=== PATIENT | male | born 1980 | race African-American/Black ===

== ENCOUNTER 2020-12-28 03:04 | Emergency (ER) | payer OTHER ==
[2020-12-28 03:30] LABS: Absolute Lymphocytes (CBC) 2.6 K/uL (0.7-4.9); Basophils % 0.3 % (0-1.3); Hematocrit 46.4 % (39.6-49.0); Lymphocytes % 21.3 % (15.3-44.8); MPV 7.7 fL (7.6-11.3); RBC Red Blood Cell Count 5.53 M/uL (4.33-5.43)
[2020-12-28] MEDS ORDERED: NA CHLORIDE 0.9% 1,000 ML ONE (03:31)
[2020-12-28] MEDS ORDERED: ONDANSETRON 4 MG/2 ML VIAL ONE (03:31)
[2020-12-28 03:45] LABS: Albumin 4.2 g/dL (3.4-5.0); Bilirubin Direct 0.2 mg/dL (0-0.2); Bilirubin Total 0.7 mg/dL (0.2-1.0); Potassium 3.4 mmol/L (3.5-5.1); Protein, Total 7.9 g/dL (6.4-8.2)
[2020-12-28] MEDS ORDERED: MORPHINE 4 MG/ML SYR ONE (04:06)
[2020-12-28] MEDS ORDERED: FENTANYL CITR 100 MCG/2 ML ONE (04:33)
[2020-12-28] MEDS ORDERED: KETOROLAC 30 MG/ML INJ ONE (05:07)
--- NOTE | 2020-12-28 05:16 | EDPHYS ---
Physician Documentation [facility] Name: Hiram Anderson Age: 40 yrs Sex: Male : 1980 Arrival Date: 12/28/2020 Time: 03:05 Bed 4 Private MD: ED Physician Jeffery Gregory HPI: 12/28 03:52 This 40 yrs old Black Male presents to ER via EMS with complaints of abdominal pain. tw4 03:52 The patient presents with abdominal pain. Onset: The symptoms/episode began/occurred tw4 this morning, today. The symptoms do not radiate. Associated signs and symptoms: Pertinent positives: nausea, vomiting, and diarrhea, nausea and vomiting, diarrhea. The symptoms are described as crampy. Modifying factors: The symptoms are alleviated by nothing, the symptoms are aggravated by nothing. Severity of pain: At its worst the pain was moderate in the emergency department the pain is unchanged. The patient has not experienced similar symptoms in the past. Historical: - Allergies: 03:16 No Known Allergies; bs2 - Home Meds: 03:16 Unable to obtain [Active]; bs2 - PMHx: 03:16 Acid Reflux; bs2 - Immunization history:: Client reports receiving the 2nd dose of the Covid vaccine, Pizer. - Social history:: Smoking status: unknown. ROS: 03:52 Constitutional: Negative for fever, chills, and weight loss, Eyes: Negative for injury, tw4 pain, redness, and discharge, Cardiovascular: Negative for chest pain, palpitations, and edema, Respiratory: Negative for shortness of breath, cough, wheezing, and pleuritic chest pain, Back: Negative for injury and pain, MS/Extremity: Negative for injury and deformity, Skin: Negative for injury, rash, and discoloration, Neuro: Negative for headache, weakness, numbness, tingling, and seizure. 03:52 Abdomen/GI: Positive for abdominal pain, nausea and vomiting, nausea, vomiting, and diarrhea, nausea, vomiting, diarrhea, abdominal cramps, Negative for anorexia, dysphagia, hematemesis, black/tarry stool, rectal pain, rectal bleeding, bowel incontinence, flatulence. Exam: 03:52 Constitutional: This is a well developed, well nourished patient who is awake, alert, tw4 and in no acute distress. Head/Face: Normocephalic, atraumatic. Chest/axilla: Normal chest wall appearance and motion. Nontender with no deformity. No lesions are appreciated. Cardiovascular: Regular rate and rhythm with a normal S1 and S2. No gallops, murmurs, or rubs. Normal PMI, no JVD. No pulse deficits. Respiratory: Lungs have equal breath sounds bilaterally, clear to auscultation and percussion. No rales, rhonchi or wheezes noted. No increased work of breathing, no retractions or nasal flaring. Back: No spinal tenderness. No costovertebral tenderness. Full range of motion. Skin: Warm, dry with normal turgor. Normal color with no rashes, no lesions, and no evidence of cellulitis. MS/ Extremity: Pulses equal, no cyanosis. Neurovascular intact. Full, normal range of motion. Neuro: Awake and alert, GCS 15, oriented to person, place, time, and situation. Cranial nerves II-XII grossly intact. Motor strength 5/5 in all extremities. Sensory grossly intact. Cerebellar exam normal. Normal gait. 03:52 Abdomen/GI: Inspection: abdomen appears normal, Bowel sounds: normal, Palpation: moderate abdominal tenderness, in the umbilical area, suprapubic area, right upper quadrant, left upper quadrant, right lower quadrant and left lower quadrant. Vital Signs: 03:13 BP 156 / 94 LA Sitting (auto/lg); Pulse 57; Resp 19; Temp 97.6(TE); Pulse Ox 100% on bs2 R/A; Weight 90.72 kg; Height 6 ft. 1 in. (185.42 cm); Pain 10/10; 04:00 BP 148 / 87; Pulse 56; Resp 18; Pulse Ox 100% on R/A; jb4 05:00 BP 177 / 83; Pulse 71; Resp 16; Pulse Ox 100% on R/A; jb4 03:13 Body Mass Index 26.39 (90.72 kg, 185.42 cm) bs2 MDM: 04:52 Differential diagnosis: acute coronary syndrome, bowel obstruction, cholecystitis, tw4 Cholelithiasis, diverticulitis, Peritonitis, Prostatitis, Testicular Torsion. Data reviewed: vital signs, nurses notes. Data interpreted: Pulse oximetry: Interpretation: normal. Counseling: I had a detailed discussion with the patient and/or guardian regarding: the historical points, exam findings, and any diagnostic results supporting the discharge/admit diagnosis, lab results. Special discussion: Based on the patient's Hx, exam, and Dx evaluation, there is no indication for emergent surgery or inpatient Tx. It is understood by the patient/guardian that if the Sx's persist or worsen they need to return immediately for re-evaluation. I discussed with the patient/guardian in detail that at this point there is no indication for admission to the hospital. It is understood, however, that if the symptoms persist or worsen the patient needs to return immediately for re-evaluation. 05:15 Patient medically screened. tw4 05:16 Medication response: morphine markedly relieved the patient's pain. Symptoms have tw4 improved, Response to treatment: the patient's symptoms have markedly improved after treatment, and as a result, I will discharge patient. ED course: Patient came to the ER via ambulance and complaining of abdominal pain which is generalized with vomiting. Patient has had pain all day. Patient states the pain was diffuse. CT scan did not show any acute evidence of any abdominal process. Patient's laboratory evaluation was negative as well. Patient received multiple doses of pain medication and. 12/28 03:06 Order name: Basic Metabolic Panel; Complete Time: 03:51 12/28 03:51 Interpretation: Normal except: CL 108; GLUC 208; K 3.4. 12/28 03:06 Order name: CBC with Diff; Complete Time: 03:51 12/28 03:51 Interpretation: Normal except: WBC 12.10; RBC 5.53; NEUT A 8.6. 12/28 03:06 Order name: Hepatic Function; Complete Time: 03:51 12/28 03:51 Interpretation: Normal except: GLOB 3.7. 12/28 03:06 Order name: Lipase; Complete Time: 03:51 12/28 03:51 Interpretation: Within normal limits: LIP 138. 12/28 03:23 Order name: CT Abd/Pelvis - IV Contrast Only 12/28 05:42 Order name: Urine Dipstick-Ancillary EDMS 12/28 03:06 Order name: IV Saline Lock; Complete Time: 03:07 12/28 03:06 Order name: Labs collected and sent; Complete Time: 03:07 12/28 03:24 Order name: Urine Dipstick-Ancillary (obtain specimen) tw4 Administered Medications: 03:12 Drug: NS 0.9% 1000 ml Route: IV; Rate: 1 bolus; Site: right antecubital; ea 04:00 Follow up: Response: No adverse reaction; IV Status: Completed infusion; IV Intake: jb4 1000ml 06:17 Follow up: IV Status: Completed infusion bs2 03:12 Drug: Zofran (Ondansetron) 4 mg Route: IVP; Site: right antecubital; ea 05:52 Follow up: Response: No adverse reaction jb4 03:49 Drug: morphine 4 mg Route: IVP; Site: right antecubital; jb4 04:05 Follow up: Response: No adverse reaction; Pain is unchanged, physician notified jb4 04:17 Drug: fentaNYL (PF) 100 mcg Route: IVP; Site: right antecubital; jb4 04:30 Follow up: Response: No adverse reaction; Marked relief of symptoms; Pain is decreased jb4 04:50 Drug: Ketorolac 30 mg Route: IVP; Site: right antecubital; jb4 05:32 Follow up: Response: No adverse reaction jb4 05:15 Drug: Bentyl (dicyclomine) 20 mg Route: IM; Site: right gluteus; jb4 05:32 Follow up: Response: No adverse reaction jb4 05:31 Drug: Pepcid (famotidine) 20 mg Route: IVP; Site: right antecubital; jb4 05:52 Follow up: Response: No adverse reaction; Marked relief of symptoms jb4 Disposition Summary: 12/28/20 05:15 Discharge Ordered Location: Home tw4 Problem: new tw4 Symptoms: have improved tw4 Condition: Stable tw4 Diagnosis - Abdominal pain, Generalized tw4 - Other viral enteritis tw4 Followup: tw4 - With: Private Physician - When: Upon discharge from the Emergency Department - Reason: Recheck today's complaints, Continuance of care, Re-evaluation by your physician Discharge Instructions: - Discharge Summary Sheet tw4 - Abdominal Pain, Adult tw4 - Diarrhea, Adult tw4 - Viral Gastroenteritis, Adult tw4 Forms: - Medication Reconciliation Form tw4 - Thank You Letter tw4 - Antibiotic Education tw4 - Prescription Opioid Use tw4 Prescriptions: - Zofran 4 mg Oral Tablet - take 1 tablet by ORAL route every 12 hours As needed; 20 tablet; Refills: 0, tw4 Product Selection Permitted Signatures: Dispatcher [employer] Jacek Boo, RN RN jb4 Jumana Gamino RN RN ea Wadley, Terrence, MD MD tw4 Caitlyn Kuo RN RN bs2 Corrections: (The following items were deleted from the chart) 03:51 03:51 Normal except: CL 108; GLUC 208. tw4 tw4
--- NOTE | 2020-12-28 05:16 | ER ---
Nurse's Notes [facility] Name: Hiram Anderson Age: 40 yrs Sex: Male : 1980 Arrival Date: 12/28/2020 Time: 03:05 Bed 4 Private MD: Diagnosis: Abdominal pain, Generalized;Other viral enteritis Presentation: 12/28 03:13 Chief complaint: Patient states: abdomen pain, generalized all over, nausea, vomiting bs2 and diarrhea. Coronavirus screen: diarrhea, vomiting. Ebola Screen: No symptoms or risks identified at this time. Initial Sepsis Screen: Does the patient meet any 2 criteria? No. Patient's initial sepsis screen is negative. Does the patient have a suspected source of infection? No. Patient's initial sepsis screen is negative. Risk Assessment: Do you want to hurt yourself or someone else? Patient reports no desire to harm self or others. Onset of symptoms was December 28, 2020. 03:13 Method Of Arrival: EMS: [facility] bs2 03:13 Acuity: SARI 3 bs2 Triage Assessment: 03:16 General: Appears uncomfortable, slender, well developed, well nourished, Behavior is bs2 anxious, restless. Pain: Complains of pain in abdomen Pain currently is 10 out of 10 on a pain scale. Historical: - Allergies: 03:16 No Known Allergies; bs2 - Home Meds: 03:16 Unable to obtain [Active]; bs2 - PMHx: 03:16 Acid Reflux; bs2 - Immunization history:: Client reports receiving the 2nd dose of the Covid vaccine, Pizer. - Social history:: Smoking status: unknown. Screenin:20 Abuse screen: Denies threats or abuse. Denies injuries from another. Nutritional bs2 screening: No deficits noted. Tuberculosis screening: No symptoms or risk factors identified. Fall Risk None identified. Assessment: 03:20 GI: Abdomen is flat, Pt is actively vomiting bile, Last BM was December 28, 2020. Abd is bs2 soft X 4 quads Abdomen is tender to palpation X 4 quads. Reports lower abdominal pain, upper abdominal pain, diarrhea, nausea, vomiting. Vital Signs: 03:13 BP 156 / 94 LA Sitting (auto/lg); Pulse 57; Resp 19; Temp 97.6(TE); Pulse Ox 100% on bs2 R/A; Weight 90.72 kg; Height 6 ft. 1 in. (185.42 cm); Pain 10/10; 04:00 BP 148 / 87; Pulse 56; Resp 18; Pulse Ox 100% on R/A; jb4 05:00 BP 177 / 83; Pulse 71; Resp 16; Pulse Ox 100% on R/A; jb4 03:13 Body Mass Index 26.39 (90.72 kg, 185.42 cm) bs2 ED Course: 03:05 Patient arrived in ED. tw4 03:06 Jeffery Gregory MD is Attending Physician. tw4 03:13 Caitlyn Kuo, RN is Primary Nurse. bs2 03:15 Triage completed. bs2 03:16 Arm band placed on right wrist. bs2 03:20 Patient has correct armband on for positive identification. Bed in low position. Call bs2 light in reach. Side rails up X2. Pulse ox on. NIBP on. Warm blanket given. 03:20 Inserted saline lock: 18 gauge in right antecubital area, using aseptic technique. bs2 03:22 Lipase Sent. bs2 03:22 Hepatic Function Sent. bs2 03:22 CBC with Diff Sent. bs2 03:22 Basic Metabolic Panel Sent. bs2 04:09 CT Abd/Pelvis - IV Contrast Only In Process Unspecified. EDMS 05:36 No provider procedures requiring assistance completed. IV discontinued, intact, jb4 bleeding controlled, No redness/swelling at site. Pressure dressing applied. Administered Medications: 03:12 Drug: NS 0.9% 1000 ml Route: IV; Rate: 1 bolus; Site: right antecubital; ea 04:00 Follow up: Response: No adverse reaction; IV Status: Completed infusion; IV Intake: jb4 1000ml 06:17 Follow up: IV Status: Completed infusion bs2 03:12 Drug: Zofran (Ondansetron) 4 mg Route: IVP; Site: right antecubital; ea 05:52 Follow up: Response: No adverse reaction jb4 03:49 Drug: morphine 4 mg Route: IVP; Site: right antecubital; jb4 04:05 Follow up: Response: No adverse reaction; Pain is unchanged, physician notified jb4 04:17 Drug: fentaNYL (PF) 100 mcg Route: IVP; Site: right antecubital; jb4 04:30 Follow up: Response: No adverse reaction; Marked relief of symptoms; Pain is decreased jb4 04:50 Drug: Ketorolac 30 mg Route: IVP; Site: right antecubital; jb4 05:32 Follow up: Response: No adverse reaction jb4 05:15 Drug: Bentyl (dicyclomine) 20 mg Route: IM; Site: right gluteus; jb4 05:32 Follow up: Response: No adverse reaction jb4 05:31 Drug: Pepcid (famotidine) 20 mg Route: IVP; Site: right antecubital; jb4 05:52 Follow up: Response: No adverse reaction; Marked relief of symptoms jb4 Intake: 04:00 IV: 1000ml; Total: 1000ml. jb4 Outcome: 05:15 Discharge ordered by . tw4 05:36 Discharged to home ambulatory. jb4 05:36 Condition: stable 05:36 Discharge instructions given to patient, Instructed on discharge instructions, follow up and referral plans. medication usage, Demonstrated understanding of instructions, follow-up care, medications, Prescriptions given X 1. 05:56 Patient left the ED. jb4 Signatures: Dispatcher [employer] EDMS Jacek Soler RN RN jb4 Jumana Gamino RN RN ea Wadley, Terrence, MD MD tw4 Caitlyn Kuo RN RN bs2
[2020-12-28] MEDS ORDERED: DICYCLOMINE HCL 20 MG/2 ML AMP IM ONE (05:39)
[2020-12-28 05:42] LABS: Urine Blood 1+ (Negative); Urine Glucose Negative (Negative); Urine Protein Negative (Negative); Urine Specific Gravity 1.015 (1.005-1.030); Urine pH >=9.0 (5.0-7.0)
[2020-12-28] MEDS ORDERED: FAMOTIDINE 20 MG/2 ML VIAL IV ONE (05:48)
[2020-12-28 06:03] VITALS: TEMP 97.6; O2SAT 100
[2020-12-28 06:06] VITALS: BP 177/83
--- NOTE | 2020-12-28 10:56 | RAD REPORT ---
EXAM DESCRIPTION: CT - Abdomen Pelvis W Contrast - 12/28/2020 6:34 am CLINICAL HISTORY: The patient is 40 years old and is Male; ABD PAIN TECHNIQUE: Axial computed tomography images of the abdomen and pelvis with intravenous contrast. S agittal and coronal reformatted images were created and reviewed. This CT exam was performed using one or more of the following dose reduction techniques: automated exposure control, adjustment of t he mA and/or kV according to patient size, and/or use of iterative reconstruction technique. COMPARISON: No relevant prior studies available. FINDINGS: ARTIFACTS: The exam is suboptimal secondary to motion artifact. LUNG BASES: Unremarkable. No mass. No consolidation. ABDOMEN: LIVER: Unremarkable. No mass. GALLBLADDER AND BILE DUCTS: No calcified stones. No ductal dilation. PANCREAS: No ductal dilation. No mass. SPLEEN: Unremarkable. ADRENALS: Unremarkable. No mass. KIDNEYS AND URETERS: Unremarkable. The kidneys enhance symmetrically. No obstructing renal or ure teral calculus is seen. No hydronephrosis or hydroureter. No perinephric fluid or stranding. STOMACH AND BOWEL: The stomach is minimally filled with fluid. The small bowel is relatively norm al in caliber. Stool is present throughout colon. There is no mucosal thickening or evidence of obstr uction. PELVIS: APPENDIX: The appendix is normal in caliber without surrounding inflammation. BLADDER: The bladder is moderately distended. REPRODUCTIVE: Unremarkable as visualized. ABDOMEN and PELVIS: INTRAPERITONEAL SPACE: Unremarkable. No free air. No significant fluid collection. BONES/JOINTS: No acute fracture. Minimal degenerative change at L5-S1 is noted. SOFT TISSUES: The soft tissues are normal. VASCULATURE: Unremarkable. No abdominal aortic aneurysm. LYMPH NODES: Unremarkable. No enlarged lymph nodes. IMPRESSION: No acute findings on this contrasted CT of the abdomen and pelvis to explain the patient 's symptoms. Electronically signed by: Kylie Valle MD 12/28/2020 4:25 AM CDT Due to temporary technical issues with the PACS/Fluency reporting system, reports are being signed by the in house radiologists without review as a courtesy to insure prompt reporting. The interpreting radiologist is fully responsible for the content of the report.
== END 2020-12-28 05:56 | disposition home or self-care (01) ==
LOC: ER 03:04
DX: A08.39 Other viral enteritis (principal)
CPT/HCPCS: 96361; 85025; 80048; 36415; 80076; 81003; 83690; 74177; 96375; 96372; 96374; 99284; Q9967; J0500; J3010; J7030; J2405